=== PATIENT | female | born 1980 | race Caucasian/White ===

== ENCOUNTER → 2016-02-25 | Outpatient (CLI) | payer OTHER ==
--- NOTE | 2016-02-25 17:44 | US ---
Dear Dr. Graff, Thank you for sending your patient, Tiana Weston, to us for a follow-up US to assess interval feta l growth. As you know, the patient is a 35 y.o. G1, P0 at 27 weeks and 0 days with an EDC of 05/26/16. Her is complicated by AMA and CHTN not on medications. Tiana's brother from [facility]. A echocardiogram was normal in this . BP: 111/67 Genetic Screening: NIPT and AFP reassuring The patient denies any uterine contractions, vaginal bleeding, or loss of fluid. She reports excellen t movement. Today, she is without complaints. US FINDINGS: Number of fetuses: 1 Placental location: Anterior, no previa presentation: Cephalic Cervix: Suboptimal MVP: 5.9 cm Measurements: Biparietal diameter: 69 mm, 27 weeks 6 days Head circumference: 250 mm, 27 weeks 1 days Abdominal circumference: 248 mm, 29 weeks 0 days Femur length: 50 mm, 27 weeks 0 days Humerus length: 49 mm, 28 weeks 6 days Transcerebellar diameter: 31 mm, 26 weeks 6 days Cerebral Lateral Ventricle: 4 mm Cisterna Magna: 7 mm Heart Rate: 144 bpm Average ultrasound age: 27 weeks 6 days Estimated weight: 1162 g weight percentile: 79% Anatomy: anatomy was previously assessed. Today the following structures were visualized and appeared n ormal: lateral ventricles, posterior fossa, 4CH view and outflow tracts, stomach, kidneys, and bladde r. The spine and cardiac SVC/IVC tracts were not previously seen. Today, we were able to visualize these structures as normal. IMPRESSION: 1. Growth: The fetus measures appropriate for gestational age, measuring at a normal weight and perc entile. Visualization of the fetus today reveals no overt structural anomalies. There is evidence of normal amniotic fluid, and movement was seen during the examination. 2. Chronic Hypertension: The patient's blood pressures continue to be stable off medications. She con tinues to be asymptomatic. - Continue daily baby ASA - Growth US every 4-6 weeks - Biweekly NSTs and weekly fluid checks at 32 weeks - Delivery by 38-39 weeks or sooner for changes in maternal or status. Thank you again for sending this patient to see us today. Approximately 15 minutes were spent with th is patient today with 12 minutes of this time spent in direct face to face counseling regarding today 's US findings and our recommendations. Please contact me with any questions at . Fidelia Whitman MD Maternal- Medicine
--- NOTE | 2016-02-26 08:48 | US ---
OB Sonogram History: DARCIE May 26, 2016, 27 weeks 0 days, advanced maternal age, chronic hypertension, family his tory of congenital heart disease, maternal hypertension Comparison: January 06, 2016 Findings: There is a single viable intrauterine gestation in vertex presentation. The placenta is ant erior and not mature. There is no placenta previa. The cervix is poorly visualized. The heart i s 4 chambered and has a rate of 144 beats per minute. Fluid is identified in the stomach and fe edgard urinary bladder. The renal region looks normal. The visualized intracranial contents and spine look normal. Maximum amniotic fluid pocket = 5.9 cm. BPD = 69 mm = 27 weeks 6 days Head circumference = 250 mm = 27 weeks 1 day Abdominal circumference = 248 mm = 29 weeks 0 days Femur length = 50 mm = 27 weeks 0 days Humeral length = 49 mm = 28 weeks 6 days Cerebellar width = 31 mm = 26 weeks 6 days Cisterna magna = 6.8 mm Estimated weight = 1162 +/- 170 grams = 79% ile Ultrasound estimated DARCIE May 20, 2016 Average gestational age by ultrasound 27 weeks 6 days Impression: Size consistent with dates. Amniotic fluid remains normal. This report should be read in conjunction with the consultation by Dr. Jessica perez.
== END ==
LOC: FIMAGING 10:54
PROVIDERS: ATTEND Obstetrics & Gynecology
DX: O10.012 Pre-existing essential hypertension complicating pregnancy, second trimester (principal); O09.512 Supervision of elderly primigravida, second trimester; Z3A.27 27 weeks gestation of pregnancy

== ENCOUNTER → 2016-03-26 | Outpatient (CLI) | payer OTHER ==
--- NOTE | 2016-03-26 11:54 | US ---
Dear Dr. Graff, Thank you for sending your patient, Tiana Weston, to us for a follow-up US to assess interval feta l growth. As you know, the patient is a 35 y.o. G1, P0 at 31 weeks and 2 days with an EDC of 05/26/16. Her is complicated by AMA and elevated blood pressures in early . Tiana was initially noted to have 2 mild range blood pressures early in the 1st trimester. This houser sed concern for undiagnosed CHTN. However, throughout the remainder of the , she has been no rmotensive in clinic, at our office, and at home. She is checking her BPs at home 1-2 times per day a nd reports BPs in the 110s/60s. Prior to , she had no diagnosis of elevated blood pressures. Tiana's brother from [facility]. She has had a normal ec hocardiogram in this . Genetic Screening: NIPT reassuring Blood Pressure: 115/68 The patient denies any uterine contractions, vaginal bleeding, or loss of fluid. She reports excellen t movement. She denies headache, scotomata, or RUQ pain. Today, she is without complaints. US FINDINGS: Number of fetuses: 1 Placental location: Anterior, no previa presentation: Cephalic Cervix: Suboptimal MVP: 10 cm FRANK: 19.6 cm Measurements: Biparietal diameter: 80 mm, 32 weeks 1 days Head circumference: 297 mm, 32 weeks 6 days Abdominal circumference: 29 mm, 33 weeks 2 days Femur length: 64 mm, 33 weeks 1 days Humerus length: 57 mm, 33 weeks 0 days Transcerebellar diameter: 40 mm, 32 weeks 1 days Cerebral Lateral Ventricle: Suboptimal Cisterna Magna: 4 mm Heart Rate: 142 bpm Average ultrasound age: 32 weeks 6 days Estimated weight: 2113 g weight percentile: 91 % Anatomy: anatomy was previously assessed. Today the following structures were visualized and appeared n ormal: posterior fossa, 4CH view, stomach, kidneys, and bladder. IMPRESSION: 1. Macrosomia: Today, the fetus measures >90%ile with an EFW in the 91%ile, which meets criter ia for macrosomia. There is no evidence of polyhydramnios or [id number] disproportion. Tiana had an abnormal Glucola, but a negative 3 hour GTT with only 1 value elevated. We discussed the increased risk for cephalo-pelvic disproportion requiring delivery and of shoulder dystocia with incr eased maternal and morbidity. We also discussed healthy eating habits and exercise recommend ations as excess gestational weight gain can lead to macrosomia independent of GDM. - Consider random blood glucose measurements at clinic visits - Consider growth US at 36 weeks to better estimate EFW at 39-40 weeks 2. Elevated Blood Pressures: Given that the patient has had no further elevated blood pressures after the early first trimester, I am unsure if she warrants diagnosis of CHTN. Given that she remains nor motensive with maximum volume expansion of (28-32 weeks), I do not think that she warrants NST surveillance or regular growth US. However, if her elevated blood pressures return (>140/90) eith er at home or in clinic, I would start surveillance and obtain a follow-up growth US. Addit ionally, if her blood pressures remain normotensive, I would not recommend delivery prior to 39-40 we eks. Thank you again for sending this patient to see us today. Approximately 15 minutes were spent with th is patient today with 12 minutes of this time spent in direct face to face counseling regarding today 's US findings and our recommendations. Please contact me with any questions at . Fidelia Whitman MD Maternal- Medicine
--- NOTE | 2016-03-26 15:38 | US ---
OB Sonogram History: DARCIE 05/26/2016, 31 weeks 2 days, check growth and anatomy, maternal hypertension, advanced ma ternal age, family history of congenital heart disease Comparison: None Findings: There is a single viable uterine gestation in vertex presentation. The placenta is anterior without evidence of previa. Basilar plate calcifications are developing in the placenta. The cervix is obscured by the head. The maternal left ovary is normal. The maternal right ovary is normal. Maximum amniotic fluid pocket = 10 cm. FRANK = 19.6 cm The visualized intracranial contents and face look normal. The heart is 4 chambered and has a rate of 142 bpm. Fluid is identified in the stomach and urinary bladder. The f etal renal region normal. There is no ascites. BPD = 80 mm = 32 weeks 1 day (67%) Head circumference = 297 mm = 32 weeks 6 days (57%) Abdominal circumference = 293 mm = 33 weeks 2 days (93%) Femur length = 64 mm = 33 weeks 1 day (84%) Humeral length = 57 mm = 33 weeks 0 days Cerebellar width = 40 mm = 32 weeks 1 day Cisterna magna = 4.3 mm Estimated weight = 2113 g = 91 percentile Average gestational age by ultrasound = 32 weeks 6 days Ultrasound DARCIE May 15, 2016 Impression: macrosomia in the 93rd percentile. Normal visualized anatomy. This report should be read in conjunction with a consultation by Dr. Fidelia Whitman..
== END ==
LOC: FIMAGING 09:29
PROVIDERS: ATTEND Obstetrics & Gynecology
DX: O09.513 Supervision of elderly primigravida, third trimester (principal); O13.3 Gestational [pregnancy-induced] hypertension without significant proteinuria, third trimester; Z3A.31 31 weeks gestation of pregnancy; Z82.79 Family history of other congenital malformations, deformations and chromosomal abnormalities

== ENCOUNTER → 2016-04-30 | Outpatient (CLI) | payer OTHER | LOC: FIMAGING 09:52 | PROVIDERS: ATTEND Obstetrics & Gynecology | DX: O09.513 Supervision of elderly primigravida, third trimester (principal); Z3A.36 36 weeks gestation of pregnancy ==

== ENCOUNTER 2016-05-12 17:34 | Inpatient (IN) | payer OTHER ==
[2016-05-12] MEDS ORDERED: LR 500 ML IV PRN (17:55)
[2016-05-12] MEDS ORDERED: EPSOM SALT 454 GM TP PRN (17:55)
[2016-05-12] MEDS ORDERED: OLIVE OIL 118 ML BTL MISC PRN (17:55)
[2016-05-12] MEDS ORDERED: LR 1,000 ML IV PRN (17:55)
[2016-05-12] MEDS ORDERED: LIDOCAINE 1% 30 ML SDV SC PRN (17:55)
[2016-05-12] MEDS ORDERED: TERBUTALINE SULFATE 1 MG/ML VIAL IV PRN (17:55)
[2016-05-12] MEDS ORDERED: OXYTOCIN/RINGERS LACTATE 1,000 ML IV PRN (17:55)
[2016-05-12] MEDS ORDERED: OXYTOCIN/RINGERS LACTATE 500 ML IV SCH (18:00)
[2016-05-12 20:54] LABS: % IMMATURE GRANULYOCYTES 0.4 % (0.0-1.1); ABSOLUTE IMMATURE GRANULOCYTES 0.04 10^3/uL (0.00-0.10); ADD DIFF? NO; ADD MORPH? NO; ADD SCAN? NO; ATYPICAL LYMPHOCYTE FLAG 0 (0-99); FRAGMENT RBC FLAG 0 (0-99); HEMATOCRIT 35.8 % (38.0-47.0); LEFT SHIFT FLG 0 (0-99); LIPEMIA HEMOLYSIS FLAG 80 (0-99); MEAN CELL HEMOGLOBIN 30.3 pg (27.9-34.1); MEAN CELL HEMOGLOBIN CONCENTR. 33.5 g/dL (32.4-36.7); MEAN CELL VOLUME 90.4 fL (81.5-99.8); MEAN PLATELET VOLUME 13.4 fL (8.7-11.7); PLATELET CLUMPS FLAG 0 (0-99); PLATELET COUNT 179 10^3/uL (150-400); RED BLOOD CELL COUNT 3.96 10^6/uL (4.18-5.33); RED CELL DISTRIBUTION WIDTH 14.3 % (11.5-15.2)
[2016-05-12 21:12] LABS: ALANINE AMINOTRANSFERASE 30 IU/L (9-52); ASPARTATE AMINOTRANSFERASE 26 IU/L (14-46); BILIRUBIN,TOTAL 0.4 mg/dL (0.1-1.4); BILIRUBIN-CONJUGATED 0.3 mg/dL (0.0-0.5); BILIRUBIN-UNCONJUGATED 0.1 mg/dL (0.0-1.1); CREATININE 0.6 mg/dL (0.6-1.0); GLOMERULAR FILTRATION RATE > 60; LACTATE DEHYDROGENASE 487 IU/L (313-618); URIC ACID 5.6 mg/dL (2.5-6.8)
[2016-05-13] MEDS ORDERED: OLIVE OIL 118 ML BTL ONE (03:12)
[2016-05-13] MEDS ORDERED: LIDOCAINE 1% 30 ML SDV ONE (03:12)
[2016-05-13] MEDS ORDERED: MISOPROSTOL 200 MCG TAB ONE (03:13)
[2016-05-13] MEDS ORDERED: OXYTOCIN 10 UNIT/ML VIAL ONE (03:13)
[2016-05-13] MEDS ORDERED: AMMONIA AROMATIC 1 EACH AMP IH ONE (03:13)
[2016-05-13] MEDS ORDERED: TERBUTALINE SULFATE 1 MG/ML VIAL ONE (03:13)
[2016-05-13] MEDS: CALCIUM CARBONATE 500 MG CHEWABLE TAB PO PRN ×2 (03:44→07:33)
[2016-05-13] MEDS ORDERED: fentaNYL 2MCG/ML/BUP 0.1% RTU 100 ML BAG EP ONE (09:29)
[2016-05-13] MEDS ORDERED: BUPIVACAINE 0.25% 30 ML SDV ONE (09:29)
[2016-05-13] MEDS ORDERED: PHENYLEPHRINE HCL 100 MCG/ML SYR ONE ×3 (09:29→18:00)
[2016-05-13] MEDS ORDERED: fentaNYL 100 MCG/2 ML INJ IVP ONE (09:30)
--- NOTE | 2016-05-13 09:31 | GHP ---
[f rep st] HISTORY AND PHYSICAL DATE OF ADMISSION: 05/12/2016 CHIEF COMPLAINT: Here for induction. HISTORY OF PRESENT ILLNESS: The patient is a 36-year-old 1, para 0, female admitted at 38 weeks and 1 days estimated gestational age for induction of labor for chronic hypertension. She has no complaints. Her has been complicated by elevated blood pressures in the 1st trimester that were consistent with suspected chronic hypertension. She had initial elevated liver enzymes with a normal right upper quadrant ultrasound that then resolved. Her mild blood pressures then recurred in the 3rd trimester. Her repeat preeclampsia labs were negative. Her is also significant for an elevated 1-hour glucose tolerance test with a normal 3-hour GTT, family history of congenital cardiac defects with a normal echo, AMA with normal cell- free DNA screening, and status post a flu and Tdap shot. She currently has no complaints. No labor symptoms and no preeclampsia symptoms. A Montes bulb was placed in the clinic for induction of labor, and she was sent to labor and delivery for admission. PAST MEDICAL HISTORY: Depression, chlamydia in the distant past, PCOS, and genital warts. PAST SURGICAL HISTORY: Tonsillectomy and adenoidectomy. ALLERGIES: No known drug allergies. MEDICATIONS: vitamin, Zantac, and Atarax as needed for itching. The patient also took metformin in the beginning of her for PCOS. LABS: Blood type A positive, antibody screen negative, hematocrit 38, Pap normal, varicella and rubella immune, RPR nonreactive, urine culture negative, hepatitis B surface antigen negative, HIV negative, gonorrhea and chlamydia negative, 1-hour GTT 155 with normal 3-hour GTT, GBS negative. PHYSICAL EXAMINATION: VITAL SIGNS: Blood pressure 136/69, respiratory rate 18 , temp 36.5 degrees Celsius. heart rate tracing 140s to 150s with accelerations and no decelerations and moderate variability. Tocometer contractions every 4 minutes. GENERAL: Mild distress due to pain. ABDOMEN: Gravid and nontender. STERILE VAGINAL EXAM: Cervix 5 cm, 60% effaced, and -2 station. Montes bulb was removed at the vaginal vault prior to exam, and artificial rupture membranes was completed with no complications with an amnio hook and clear fluid was noted. ASSESSMENT: The patient is a 36-year-old G1, P0, at 38 weeks and 1 day estimated gestational age admitted for induction of labor for chronic hypertension, not requiring medications. PLAN: 1. Labor induction: Progressing well, status post Montes bulb and AROM with no complications and clear fluid noted. We will continue with Pitocin for induction of labor. 2. status reassuring with category 1 heart rate tracing with moderate variability present. 3. GBS negative. 4. Pain: Desires epidural. Will consult anesthesia. /[id number]/MODL MTDD
--- NOTE | 2016-05-13 12:56 | OBPROG ---
OBG Progress Note Assessment/Plan: Assessment: Pt is a 36 y/o at 38+1 weeks admitted for IOL for CHTN Plan: 1) Labor: Progressing well, continue with pitocin . 2) status reassuring 3) Pain: Well controlled with JESSICA 4) GBS negative 05/13/16 12:54 Subjective: Pt feeling very comfortable with her JESSICA in place. Objective: 05/12/16 20:25 05/12/16 20:25 Patient ABO/Rh A POSITIVE 05/12/16 20:25 Uric Acid 5.6 mg/dL (2.5-6.8) 05/12/16 20:25 Total Bilirubin 0.4 mg/dL (0.1-1.4) 05/12/16 20:25 Conjugated Bilirubin 0.3 mg/dL (0.0-0.5) 05/12/16 20:25 Unconjugated Bilirubin 0.1 mg/dL (0.0-1.1) 05/12/16 20:25 AST 26 IU/L (14-46) 05/12/16 20:25 ALT 30 IU/L (9-52) 05/12/16 20:25 Lactate Dehydrogenase 487 IU/L (313-618) 05/12/16 20:25 - SVE Dilation (cm): 8 Effacement (%): 80 Station: 0 Current Contraction Pattern: Regular FHR (bpm): 140 FHR Pattern Variability: Moderate FHR Category: 1 Membranes: AROM Amniotic Fluid Color: Clear ICD10 Worksheet Patient Problems: Problems Problem Status Onset Chronic hypertension in obstetric context in third trimester Acute - ICD10 Problem Qualifiers (1) Chronic hypertension in obstetric context in third trimester
--- NOTE | 2016-05-13 14:17 | OBPROG ---
OBG Progress Note Assessment/Plan: Assessment: Pt is a 36 y/o at 38+1 weeks admitted for IOL for CHTN Plan: 1) Labor: Progressing well, continue with pitocin. Only soft anterior lip present, will recheck in one hour. 2) status reassuring 3) Pain: Well controlled with JESSICA 4) GBS negative 05/13/16 14:16 Subjective: Pt comfortable, feeling more pressure. Objective: 05/12/16 20:25 05/12/16 20:25 Patient ABO/Rh A POSITIVE 05/12/16 20:25 Uric Acid 5.6 mg/dL (2.5-6.8) 05/12/16 20:25 Total Bilirubin 0.4 mg/dL (0.1-1.4) 05/12/16 20:25 Conjugated Bilirubin 0.3 mg/dL (0.0-0.5) 05/12/16 20:25 Unconjugated Bilirubin 0.1 mg/dL (0.0-1.1) 05/12/16 20:25 AST 26 IU/L (14-46) 05/12/16 20:25 ALT 30 IU/L (9-52) 05/12/16 20:25 Lactate Dehydrogenase 487 IU/L (313-618) 05/12/16 20:25 - SVE Dilation (cm): 9 (9.5 cm, anterior lip) Effacement (%): 100 Station: +1 Current Contraction Pattern: Regular FHR (bpm): 120 FHR Pattern Variability: Moderate FHR Category: 1 Amniotic Fluid Color: Clear ICD10 Worksheet Patient Problems: Problems Problem Status Onset Chronic hypertension in obstetric context in third trimester Acute - ICD10 Problem Qualifiers (1) Chronic hypertension in obstetric context in third trimester
[2016-05-13] MEDS ORDERED: fentaNYL 100 MCG/2 ML INJ ONE (17:02)
[2016-05-13] MEDS ORDERED: LIDO/EPI 2% **for epidural** 20 ML SDV ONE (17:03)
[2016-05-13] MEDS ORDERED: morphINE PF 5 MG/10 ML INJ ONE (17:26)
[2016-05-13] MEDS ORDERED: OXYTOCIN 100 UNITS/10 ML VIAL ONE (17:26)
[2016-05-13] MEDS ORDERED: HEMABATE 250 MCG/1 ML AMP IM ONE (17:40)
[2016-05-13] MEDS ORDERED: ONDANSETRON 4 MG/2 ML VIAL ONE (17:49)
[2016-05-13 17:56] LABS: PH VENOUS CORD BLOOD 7.34 (7.20-7.42)
--- NOTE | 2016-05-13 18:48 | OBPROC ---
- Delivery Pre-op Diagnoses: 1) IUP at 38+1 weeks, 2) CHTN, 3) NRFHT w/ terminal prolonged decel Post-op Diagnoses: alexandru Procedure: Primary, Emergent, Low Transverse Surgeon: Marry Graff Manufacturing Quality Technician: Albertina Gutierrez Anesthesiologist: Alexandru Ribeiro Anesthesia: Epidural Complications: None Findings: Nuchal cord IV Fluid (ml): 1,000 EBL: 800 cc Drains: Other (Specify) (jones) Cord Gases: Cord Gases Cord Blood PCO2 REJ 05/13/16 17:35 Cord Base Excess REJ 05/13/16 17:35 Cord ABG pH REJ 05/13/16 17:35 Cord VBG pH 7.34 (7.20-7.42) 05/13/16 17:35 - [place] Info A Delivery Date: 05/13/16 Delivery Time: 17:35 Sex of : Female [place] Weight (gm): 3304 g Score (1 Min): 8 Score (5 Min): 9
[2016-05-13] MEDS ORDERED: ACETAMINOPHEN 325 MG TAB PO PRN (18:50)
[2016-05-13] MEDS ORDERED: KETOROLAC 30 MG/1 ML SDV ONE (19:05)
[2016-05-13] MEDS: KETOROLAC 30 MG/1 ML SDV IVP SCH (19:11)
[2016-05-13] MEDS ORDERED: NALOXONE HCL 0.4 MG/ML INJ IVP PRN (20:06)
[2016-05-13] MEDS ORDERED: PHENYLEPHRINE HCL 100 MCG/ML SYR IVP PRN (20:06)
--- NOTE | 2016-05-13 21:27 | PREANESOB ---
Obstetric Pre-Anesthesia Info - General Info Proposed Procedure: Labor and delivery with pitocin : 1 Para: 1 WBD: 38 - Info Status: Full Term Monitors: External FHR Baseline (bpm): 150 FHR Pattern: Reassuring - Labor Status Cervical Dilation per last OB SVE: 5, 9 (9.5 cm, anterior lip) Station per last OB SVE: +1 Amniotic Fluid Color: Clear Pitocin: In Use PIH: Mild Indications for Labor Analgesia: Induction of Labor, Pain Control Labor Epidural: Proposed Anesthesia ROS: Chronic hypertension. Allergies/Adverse Reactions: Allergy/AdvReac Type Severity Reaction Status Date / Time No Known Allergies Allergy Unverified 09/24/15 19:48 Home Medications: Medication Instructions Recorded [place] 09/24/15 Metformin HCl 09/24/15 09/24/15 Visit Medications: Generic Name Dose Route Start Last Admin Trade Name Freq PRN Reason Stop Dose Admin Acetaminophen 325 - 650 mg 05/13/16 18:50 Tylenol PO 11/09/16 18:49 Q4HRS PRN Pain, Mild Hydrocodone Bitart/Acetaminophen 1 - 2 tab 05/13/16 18:50 [place] 5/325 PO 05/23/16 18:49 Q4HRS PRN Pain, Moderate Calcium Carbonate 1,000 mg 05/13/16 03:40 05/13/16 07:33 Tums PO 11/09/16 03:39 1,000 mg Q4 PRN Administration HEARTBURN Diphenhydramine HCl 25 - 50 mg 05/13/16 20:06 Benadryl Injection IVP 11/09/16 20:05 Q6HRS PRN Itching Docusate Sodium 100 mg 05/13/16 18:50 Colace PO 11/09/16 18:49 BID PRN Constipation Lactated Ringer's 1,000 mls @ 0 mls/hr 05/12/16 17:55 05/13/16 04:19 Lr IV 11/08/16 17:54 1,000 mls PRN PRN Administration SEE PROTOCOL CONDITIONS Protocol Per Protocol Lactated Ringer's 500 mls @ 500 mls/hr 05/12/16 17:55 Lr IV PRN PRN Maternal Hypotension Oxytocin/Lactated Ringer's 1,000 mls @ 150 mls/hr 05/12/16 17:55 Pitocin 20 Units/Lr (Premix) IV PRN PRN Post- bleeding Oxytocin/Lactated Ringer's 500 mls @ 0 mls/hr 05/12/16 18:00 05/13/16 04:19 Pitocin 30 Units/Lr (Premix) IV 11/08/16 17:59 500 mls CONT MONICA Administration Protocol Per Protocol Ibuprofen 600 mg 05/12/16 17:55 Motrin PO 11/08/16 17:54 Q6HRS PRN post , inflammation Ketorolac Tromethamine 30 mg 05/14/16 00:00 05/13/16 19:11 Toradol IVP 05/15/16 00:00 30 mg Q6HRS MONICA Administration Lidocaine HCl 30 ml 05/12/16 17:55 Lidocaine Hcl 1% SC 11/08/16 17:54 ONCE PRN Episiotomy Magnesium Sulfate 454 gm 05/12/16 17:55 Epsom Salt TP 11/08/16 17:54 PRN PRN perineal discomfort Naloxone HCl 0.4 mg 05/13/16 20:06 Narcan IVP 05/14/16 20:08 PRN PRN respiratory depression [place] Oil 118 ml 05/12/16 17:55 Sweet Oil MISC 11/08/16 17:54 ONCE PRN preneal massage Simethicone 80 mg 05/13/16 18:50 Mylicon PO 11/09/16 18:49 .TIDMEALS AND HS PRN Gas Terbutaline Sulfate 0.25 mg 05/12/16 17:55 Brethine IV 11/08/16 17:54 ONCE PRN Tachysystole Discontinued Medications Generic Name Dose Route Start Last Admin Trade Name Freq PRN Reason Stop Dose Admin Ammonia (Aromatic Spirit) Confirm 05/13/16 03:13 Ammonia Aromatic Administered 05/13/16 03:14 Dose 1 each IH .STK-MED ONE Bupivacaine HCl Confirm 05/13/16 09:29 Sensorcaine 0.25% Sdv Administered 05/13/16 09:30 Dose 30 ml .ROUTE .STK-MED ONE Carboprost Tromethamine Confirm 05/13/16 17:40 Hemabate Administered 05/13/16 17:41 Dose 250 mcg IM .STK-MED ONE Diphenhydramine HCl 25 mg 05/12/16 21:00 05/12/16 21:24 Benadryl Injection IVP 05/12/16 21:01 25 mg HS ONE Administration Diphenhydramine HCl Confirm 05/13/16 07:54 Benadryl Injection Administered 05/13/16 07:55 Dose 50 mg .ROUTE .STK-MED ONE Diphenhydramine HCl Confirm 05/13/16 08:02 Benadryl Injection Administered 05/13/16 08:03 Dose 50 mg .ROUTE .STK-MED ONE Diphenhydramine HCl 25 mg 05/13/16 07:44 05/13/16 10:53 Benadryl Injection IVP 05/13/16 07:45 25 mg ONCE ONE Administration Ephedrine Sulfate Confirm 05/13/16 03:13 Ephedrine Sulfate Administered 05/13/16 03:14 Dose 50 mg .ROUTE .STK-MED ONE Fentanyl 100 mcg 05/13/16 09:30 05/13/16 09:34 Sublimaze IVP 05/13/16 09:31 100 mcg ONCE ONE Administration Fentanyl Confirm 05/13/16 17:02 Sublimaze Administered 05/13/16 17:03 Dose 100 mcg .ROUTE .STK-MED ONE Fentanyl/Bupivacaine HCl Confirm 05/13/16 09:29 Fentanyl/Bupivacaine/Ns 2 Mcg/Ml 0.1% (Premix Administered 05/13/16 09:30 Dose 100 ml EP .STK-MED ONE Ketorolac Tromethamine Confirm 05/13/16 19:05 Toradol Administered 05/13/16 19:06 Dose 30 mg .ROUTE .STK-MED ONE Lidocaine HCl Confirm 05/13/16 03:12 Lidocaine Hcl 1% Administered 05/13/16 03:13 Dose 30 ml .ROUTE .STK-MED ONE Lidocaine/Epinephrine Confirm 05/13/16 17:03 Xylocaine 2%-Epi 1:200,000 Administered 05/13/16 17:04 Dose 20 ml .ROUTE .STK-MED ONE Misoprostol Confirm 05/13/16 03:13 Cytotec Administered 05/13/16 03:14 Dose 1,000 mcg .ROUTE .STK-MED ONE Morphine Sulfate Confirm 05/13/16 17:26 Morphine Pf 5 Mg/10 Ml Administered 05/13/16 17:27 Dose 5 mg .ROUTE .STK-MED ONE [place] Oil Confirm 05/13/16 03:12 Sweet Oil Administered 05/13/16 03:13 Dose 118 ml .ROUTE .STK-MED ONE Ondansetron HCl Confirm 05/13/16 17:49 Zofran Administered 05/13/16 17:50 Dose 8 mg .ROUTE .STK-MED ONE Oxytocin Confirm 05/13/16 03:13 Pitocin Administered 05/13/16 03:14 Dose 40 unit .ROUTE .STK-MED ONE Oxytocin Confirm 05/13/16 17:26 Pitocin Administered 05/13/16 17:27 Dose 100 units .ROUTE .STK-MED ONE Phenylephrine HCl Confirm 05/13/16 09:29 [place]-Synephrine Administered 05/13/16 09:30 Dose 1,000 mcg .ROUTE .STK-MED ONE Phenylephrine HCl Confirm 05/13/16 17:26 [place]-Synephrine Administered 05/13/16 17:27 Dose 1,000 mcg .ROUTE .STK-MED ONE Phenylephrine HCl Confirm 05/13/16 18:00 [place]-Synephrine Administered 05/13/16 18:01 Dose 1,000 mcg .ROUTE .STK-MED ONE Phenylephrine HCl 100 mcg 05/13/16 20:06 [place]-Synephrine IVP 05/13/16 21:06 Q1M PRN Hypotension Terbutaline Sulfate Confirm 05/13/16 03:13 Brethine Administered 05/13/16 03:14 Dose 1 mg .ROUTE .STK-MED ONE - Anesthesia History Response to Local Anesthetics: Normal - Social History Substance Use/Abuse: Denies - Focused Exam Latest Vital Signs (Nursing): Temp Pulse Resp BP Pulse Ox 36.9 C 108 H 18 109/41 L 99 05/13/16 19:04 05/13/16 19:04 05/13/16 19:04 05/13/16 19:04 05/13/16 19:04 Blood Pressure: 109/60 Heart Rate: 67 Respiratory Rate: 20 Height/Weight (Nursing): Height 157.48 cm Weight 98.883 kg Physical Exam: Within normal limits. ASA Status: II Labs: 05/12/16 20:25 05/12/16 20:25 Patient ABO/Rh A POSITIVE 05/12/16 20:25 Uric Acid 5.6 mg/dL (2.5-6.8) 05/12/16 20:25 Total Bilirubin 0.4 mg/dL (0.1-1.4) 05/12/16 20:25 Conjugated Bilirubin 0.3 mg/dL (0.0-0.5) 05/12/16 20:25 Unconjugated Bilirubin 0.1 mg/dL (0.0-1.1) 05/12/16 20:25 AST 26 IU/L (14-46) 05/12/16 20:25 ALT 30 IU/L (9-52) 05/12/16 20:25 Lactate Dehydrogenase 487 IU/L (313-618) 05/12/16 20:25 - Plan Anesthetic Plan: CSE Consent Signed and on Chart: Yes Patient/Guardian Understands and Agrees to Plan: Yes
--- NOTE | 2016-05-13 21:29 | POSTANESTH ---
Post Anesthetic Evaluation Cardiovascular Status: Normal, Stable, Similar to Pre-Op Cond Respiratory Status: Normal, Stable, Similar to Pre-op Cond. Level of Consciousness/Mental Status: Can Participate in Eval, Alert and Oriented Pain Control: Adequate, Prn Tx Ordered Nausea/Vomiting Control: Adequate, Prn Tx Ordered Complications Possibly Related to Anesthesia: None Noted (Tolerated CSE well, stable, comfortable.)
--- NOTE | 2016-05-13 21:30 | POSTANESTH ---
Post Anesthetic Evaluation Cardiovascular Status: Normal, Stable, Similar to Pre-Op Cond Respiratory Status: Normal, Stable, Similar to Pre-op Cond. Level of Consciousness/Mental Status: Can Participate in Eval, Alert and Oriented Pain Control: Adequate, Prn Tx Ordered Nausea/Vomiting Control: Adequate, Prn Tx Ordered Complications Possibly Related to Anesthesia: None Noted (Epidural dosed for C Section, BP treated, comfortable for surgery, to PACU, no pain or nausea.)
--- NOTE | 2016-05-14 02:08 | GOP ---
[f rep st] OPERATIVE REPORT DATE OF OPERATION: 05/13/2016 SURGEON: Marry Graff MD BUFFING LINE SET UP WORKER: FABIAN Naqvi. ANESTHESIA: Epidural. ANESTHESIOLOGIST: Alexandru Ribeiro MD. PREOPERATIVE DIAGNOSIS: 1. Intrauterine at 38 weeks gestation. 2. Induction for chronic hypertension. 3. Non-reassuring heart rate tracing with prolonged deceleration. POSTOPERATIVE DIAGNOSIS: 1. Intrauterine at 38 weeks gestation. 2. Induction for chronic hypertension. 3. Non-reassuring heart rate tracing with prolonged deceleration. PROCEDURE PERFORMED: Primary low transverse section. FINDINGS: 1. Delivered a female at 5:35 p.m., weighing 3304 g with Apgars of 8 and 9, in a vertex presentation, with a nuchal cord noted that was also looped up near the face anteriorly. 2. Normal uterus, fallopian tubes, and ovaries. 3. Mild uterine atony, treated with Hemabate and Pitocin. SPECIMENS: None. ESTIMATED BLOOD LOSS: 800 cc. INDICATIONS: The patient is a 36-year-old, G1, P0, female at 38 weeks gestation , admitted for induction of labor for chronic hypertension. She had a Montes bulb placed and quickly progressed to 5 cm. She then progressed with Pitocin to anterior lip dilation. There were approximately 2 or 3 periods where she had periodic variable decelerations which did resolve with position changes, O2 per nasal cannula, and stopping the Pitocin; however, the patient suddenly had a severe, prolonged, deceleration from its baseline around the 150s, down to the 90s after placement of an FSE. The patient was placed in different positions, ultimately on hands and knees, and other resuscitation maneuvers were initiated with Pitocin stopped, IV fluids administered, and O2 per nasal cannula. The patient was also given a dose of terbutaline and the heart rate tracing showed that the heart rate remained in the 90s and, in fact, it lost variability, despite all these maneuvers. After approximately 4-5 minutes of prolonged deceleration in the 90s, the patient was advised that I strongly recommended proceeding with an emergent section. She was counseled regarding the need for emergent delivery, and all the risks and benefits were verbally reviewed as preparations were made to take her to the operating room. Upon arrival into the operating room, the heart rate was found to be in the 120s. The decision was made to proceed with a delivery due to the prolonged deceleration that ultimately lasted for approximately 6-7 minutes, with the heart beat in the 90s. I discussed the recommendation to proceed with a , and she and her agreed to proceed. Now that the heart rate had recovered, preparations were then made in a routine fashion for delivery. DESCRIPTION OF PROCEDURE: The patient was taken to the operating room, where the heart rate tracing was found to be in the 120s. Anesthesia then prepared her epidural, and epidural anesthesia was found be adequate. She was prepared and draped in the normal sterile fashion in the dorsal supine position with a left tilt. Ancef 2 g IV was administered. SCDs were placed. After confirmation of adequate anesthesia, a low transverse skin incision was made and carried down to the level of the fascia using the scalpel and Bovie for hemostasis. The fascia was incised in the midline, extended laterally bilaterally with the Singh scissors. The fascia was dissected off the rectus muscles superiorly and inferiorly with the Bovie. The peritoneal cavity was entered bluntly and the incision was extended superiorly and inferiorly with the Bovie as needed. A bladder blade was placed. An incision was made in the vesicouterine peritoneum and extended laterally bilaterally. The bladder was then dissected away from the lower uterine segment digitally. A low transverse uterine incision was made and extended digitally. Immediately , the umbilical cord was visualized, wrapped around the baby's neck, and extending and delivering through the incision. The baby's head was then delivered atraumatically in vertex presentation and the nuchal cord was reduced. The baby was delivered and noted to have a spontaneous cry. The cord was doubly clamped and cut, and the baby was handed to the waiting nurse practitioner. A segment of cord was obtained for cord gases, and cord blood was then obtained. The placenta was delivered with uterine massage and noted to be intact. The uterus was exteriorized on the maternal abdomen and wiped with a dry lap sponge to remove all residual membranes. The uterine incision was then closed with a running, locked stitch of 0 Monocryl. A second layer was placed for imbrication purposes using the same suture. Additional ayhabi-rh-vlnty stitch was placed in the midline to obtain hemostasis. During the closure of the incision, the uterus was noted to have some mild atony and a dose of Hemabate IM was administered while Pitocin was being administered in the remaining IV fluids. The posterior cul-de-sac was then irrigated with copious amounts of normal saline and the uterus was then placed back in the maternal abdomen. The gutters were wiped with moist lap sponges bilaterally and the uterine incision was examined closely. Hemostasis was assured. The rectus muscle surfaces and fascial surfaces were then examined closely and hemostasis was assured. The rectus muscles were then reapproximated with a cvljyz-gr-qcelk stitch of 0 chromic. The fascia was then closed with a running , nonlocked stitch of #1 PDS. The subcutaneous tissue was reapproximated with interrupted stitches of 2-0 Vicryl. The skin was closed with a subcuticular stitch of 4-0 Monocryl. Steri-Strips and a bandage dressing were placed. A vaginal Crede exam was performed with blood clots cleared from the vaginal vault. The uterus was noted to be firm. The incision was dressed, and all sponge, lap, and needle counts correct x2. BUFFING LINE SET UP WORKER: Albertina Morrison RN. COMPLICATIONS: Mild uterine atony. DRAINS: Montes to gravity. IV FLUIDS: 1000 cc. URINE OUTPUT: 400 cc. /[id number]/MODL MTDD
[2016-05-14] MEDS: KETOROLAC 30 MG/1 ML SDV IVP SCH ×4 (02:18→19:53)
[2016-05-14 04:46] LABS: % IMMATURE GRANULYOCYTES 0.3 % (0.0-1.1); ABSOLUTE IMMATURE GRANULOCYTES 0.05 10^3/uL (0.00-0.10); ADD DIFF? NO; ADD MORPH? NO; ADD SCAN? NO; ATYPICAL LYMPHOCYTE FLAG 0 (0-99); FRAGMENT RBC FLAG 0 (0-99); HEMATOCRIT 31.2 % (38.0-47.0); HEMOGLOBIN 10.4 g/dL (12.6-16.3); LEFT SHIFT FLG 20 (0-99); LIPEMIA HEMOLYSIS FLAG 80 (0-99); MEAN CELL HEMOGLOBIN 30.7 pg (27.9-34.1); MEAN CELL HEMOGLOBIN CONCENTR. 33.3 g/dL (32.4-36.7); MEAN PLATELET VOLUME 12.8 fL (8.7-11.7); PLATELET CLUMPS FLAG 0 (0-99); PLATELET COUNT 147 10^3/uL (150-400); RED BLOOD CELL COUNT 3.39 10^6/uL (4.18-5.33); RED CELL DISTRIBUTION WIDTH 14.6 % (11.5-15.2)
[2016-05-14] MEDS: DOCUSATE SODIUM 100 MG CAP PO PRN ×2 (08:41→20:40)
--- NOTE | 2016-05-14 12:02 | SOAPPROG ---
SOAP Progress Note Assessment/Plan: Assessment: POD#1 s/p pLTCS for distress Recovering appropriately Vitals and H/H overall appropriate, but has had intermittent tachycardia, will continue to monitor Rh pos, rub immune s/p tdap and flu vaccines CHTN: BPs under good control Plan: Routine post-op care D/C Montes this afternoon Ambulate Transition to po meds If tachycardia persists despite consider repeat CBC 05/14/16 12:00 05/14/16 12:01 05/14/16 12:02 Subjective: Tired. So happy with baby. Pain is controlled. Hasn't walked or gotten out of bed. No heavy bleeding. No chest pain or shortness of breath. Has started . Objective: Vital Signs Temp Pulse Resp BP Pulse Ox 36.9 C 112 H 22 H 117/74 96 05/14/16 09:23 05/14/16 11:24 05/14/16 11:24 05/14/16 11:24 05/14/16 11:24 Laboratory Results 05/14/16 04:30 05/12/16 20:25 05/13/16 05/14/16 05/15/16 05:59 05:59 05:59 Intake Total 2950 Output Total 2200 Balance 750 Gen: NAD, alert, awake Breasts: soft Resp: unlabored CV: reg rate Abd: soft, appropriately tender, appropriately distended Bandage: c/d/i Ext; SCDs in place, no edema ICD10 Worksheet Patient Problems: Problems Problem Status Onset Chronic hypertension in obstetric context in third trimester Acute
[2016-05-14] MEDS: HYDROCODONE/APAP 5/325 TAB PO PRN ×3 (13:21→22:24)
[2016-05-14] MEDS: IBUPROFEN 600 MG TAB PO PRN ×2 (14:23→20:41)
[2016-05-14] MEDS: SIMETHICONE 80 MG TAB CHEW PO PRN (20:49)
[2016-05-15] MEDS: IBUPROFEN 600 MG TAB PO PRN ×4 (03:13→19:54)
[2016-05-15] MEDS: HYDROCODONE/APAP 5/325 TAB PO PRN ×4 (03:13→21:12)
[2016-05-15] MEDS: DOCUSATE SODIUM 100 MG CAP PO PRN (07:54)
[2016-05-15] MEDS: SIMETHICONE 80 MG TAB CHEW PO PRN ×3 (09:18→20:03)
[2016-05-15] MEDS ORDERED: LACTULOSE 20 GM/30 ML UDCUP PO PRN (16:53)
[2016-05-15] MEDS ORDERED: MAGNESIUM HYDROXIDE 30 ML UDCUP PO PRN (16:53)
[2016-05-15] MEDS ORDERED: POLYETHYLENE GLYCOL 3350 17 GM PKT PO PRN (16:53)
[2016-05-15] MEDS ORDERED: BISACODYL 10 MG SUPP PR PRN (16:53)
--- NOTE | 2016-05-15 18:38 | OBPROG ---
OBG Progress Note Assessment/Plan: Assessment: Pt is a 36 y/o POD#2 s/p primary LTCS for NRFHT - doing well Plan: 1) Continue routine postop care, pain well controlled, encouraged ambulation 2) A+/RI 3) Breast feeding progressing 05/15/16 18:35 Subjective: Pt doing well, ambulating, tolerating regular diet, voiding spontaneously, breast feeding progressing, no complaints. Objective: 05/14/16 04:30 05/12/16 20:25 Patient ABO/Rh A POSITIVE 05/12/16 20:25 Uric Acid 5.6 mg/dL (2.5-6.8) 05/12/16 20:25 Total Bilirubin 0.4 mg/dL (0.1-1.4) 05/12/16 20:25 Conjugated Bilirubin 0.3 mg/dL (0.0-0.5) 05/12/16 20:25 Unconjugated Bilirubin 0.1 mg/dL (0.0-1.1) 05/12/16 20:25 AST 26 IU/L (14-46) 05/12/16 20:25 ALT 30 IU/L (9-52) 05/12/16 20:25 Lactate Dehydrogenase 487 IU/L (313-618) 05/12/16 20:25 Temp Pulse Resp BP Pulse Ox 36.3 C 96 18 116/72 99 05/15/16 07:51 05/15/16 07:51 05/15/16 07:51 05/15/16 07:51 05/15/16 07:51 Uterine Position/Fundal Height: Umbilicus -1 Uterine Tone: Firm - Physical Exam General Appearance: WD/WN, alert, no apparent distress Respiratory: lungs clear Cardiac/Chest: regular rate, rhythm Abdomen: normal bowel sounds, soft, incision (c/d/i, steri strips intact) ICD10 Worksheet Patient Problems: Problems Problem Status Onset Chronic hypertension in obstetric context in third trimester Acute - ICD10 Problem Qualifiers (1) Chronic hypertension in obstetric context in third trimester
[2016-05-15] MEDS: SENNOSIDES/DOCUSATE SODIUM TAB PO SCH (19:53)
[2016-05-15 20:28] VITALS: RESP 16
[2016-05-16] MEDS: IBUPROFEN 600 MG TAB PO PRN ×3 (01:40→22:24)
[2016-05-16] MEDS: HYDROCODONE/APAP 5/325 TAB PO PRN ×6 (01:41→22:23)
[2016-05-16] MEDS: SIMETHICONE 80 MG TAB CHEW PO PRN (08:23)
[2016-05-16] MEDS: DOCUSATE SODIUM 100 MG CAP PO PRN (08:23)
[2016-05-16] MEDS: SENNOSIDES/DOCUSATE SODIUM TAB PO SCH ×2 (08:23→22:44)
--- NOTE | 2016-05-16 08:24 | OBPROG ---
OBG Progress Note Assessment/Plan: Assessment: Pt is a 36 y/o POD#3 s/p primary LTCS for NRFHT - doing well Plan: 1) Continue routine postop care, bowel protocol altered to scheduled doses of fiber and mirilax. 2) A+/RI 3) Breast feeding progressing 4) Inpatient care 05/16/16 08:23 Subjective: Pt is ambulating, tolerating regular diet, voiding spontaneously, pain from gas. Pt passing very little flatus, no BM. Objective: 05/14/16 04:30 05/12/16 20:25 Patient ABO/Rh A POSITIVE 05/12/16 20:25 Uric Acid 5.6 mg/dL (2.5-6.8) 05/12/16 20:25 Total Bilirubin 0.4 mg/dL (0.1-1.4) 05/12/16 20:25 Conjugated Bilirubin 0.3 mg/dL (0.0-0.5) 05/12/16 20:25 Unconjugated Bilirubin 0.1 mg/dL (0.0-1.1) 05/12/16 20:25 AST 26 IU/L (14-46) 05/12/16 20:25 ALT 30 IU/L (9-52) 05/12/16 20:25 Lactate Dehydrogenase 487 IU/L (313-618) 05/12/16 20:25 Temp Pulse Resp BP Pulse Ox 36.5 C 98 16 126/77 H 97 05/15/16 20:26 05/15/16 20:26 05/15/16 20:26 05/15/16 20:26 05/15/16 20:26 Uterine Position/Fundal Height: At Umbilicus Uterine Tone: Firm - Physical Exam General Appearance: WD/WN, alert, no apparent distress Respiratory: lungs clear Cardiac/Chest: regular rate, rhythm Abdomen: normal bowel sounds, distended, incision (c/d/i) ICD10 Worksheet Patient Problems: Problems Problem Status Onset Chronic hypertension in obstetric context in third trimester Acute - ICD10 Problem Qualifiers (1) Chronic hypertension in obstetric context in third trimester
[2016-05-16] MEDS: MAGNESIUM HYDROXIDE 30 ML UDCUP PO SCH (08:51)
[2016-05-16] MEDS: LACTULOSE 20 GM/30 ML UDCUP PO SCH ×3 (08:51→22:33)
[2016-05-16 21:42] VITALS: O2SAT 96
[2016-05-17] MEDS: HYDROCODONE/APAP 5/325 TAB PO PRN ×3 (02:31→12:01)
[2016-05-17] MEDS: IBUPROFEN 600 MG TAB PO PRN ×2 (05:59→12:00)
[2016-05-17 10:50] VITALS: BP 115/77; PULSE 75; TEMP 97.1
[2016-05-17] MEDS: SENNOSIDES/DOCUSATE SODIUM TAB PO SCH (11:28)
[2016-05-17] MEDS: LACTULOSE 20 GM/30 ML UDCUP PO SCH (11:30)
[2016-05-17] MEDS: MAGNESIUM HYDROXIDE 30 ML UDCUP PO SCH (11:30)
--- NOTE | 2016-05-17 12:36 | OBPROG ---
OBG Progress Note Assessment/Plan: Assessment: Pt is a 36 y/o POD#4 s/p primary LTCS for NRFHT - doing well, ready for discharge home Plan: 1) Discharge home 2) A+/RI 3) Breast feeding progressing 4) RX for motrin and norco given 5) F/U in 2 weeks or sooner prn. Pain/bleeding/fever precautions 05/17/16 12:36 Subjective: Pt doing well, no complaints. Ambulating, voiding, passing flatus and BM, tolerating regular diet, lochia diminishing, and breast feeding progressing. Pt had one hour of diarrhea yesterday, but no BM yet today. Pain well controlled w/ oral meds. Objective: 05/14/16 04:30 05/12/16 20:25 Patient ABO/Rh A POSITIVE 05/12/16 20:25 Uric Acid 5.6 mg/dL (2.5-6.8) 05/12/16 20:25 Total Bilirubin 0.4 mg/dL (0.1-1.4) 05/12/16 20:25 Conjugated Bilirubin 0.3 mg/dL (0.0-0.5) 05/12/16 20:25 Unconjugated Bilirubin 0.1 mg/dL (0.0-1.1) 05/12/16 20:25 AST 26 IU/L (14-46) 05/12/16 20:25 ALT 30 IU/L (9-52) 05/12/16 20:25 Lactate Dehydrogenase 487 IU/L (313-618) 05/12/16 20:25 Temp Pulse Resp BP Pulse Ox 36.2 C 75 16 115/77 96 05/17/16 09:00 05/17/16 09:00 05/17/16 09:00 05/17/16 09:00 05/16/16 21:00 Uterine Position/Fundal Height: At Umbilicus Uterine Tone: Firm - Physical Exam General Appearance: WD/WN, alert, no apparent distress Respiratory: lungs clear Cardiac/Chest: regular rate, rhythm Abdomen: normal bowel sounds, non-tender, soft, flatus, incision (incision c/d/i ) ICD10 Worksheet Patient Problems: Problems Problem Status Onset Chronic hypertension in obstetric context in third trimester Acute - ICD10 Problem Qualifiers (1) Chronic hypertension in obstetric context in third trimester
== END 2016-05-17 14:30 | disposition home or self-care (01) | DRG 765 ==
LOC: FLD 17:34 → FOB 05-13 20:00
PROVIDERS: ADMIT Obstetrics & Gynecology; ATTEND Obstetrics & Gynecology
PROC: 10907ZC Drainage of Amniotic Fluid, Therapeutic from Products of Conception, Via Natural or Artificial Opening (ICD-10-PCS; principal; 2016-05-13)
PROC: 10D00Z1 Extraction of Products of Conception, Low, Open Approach (ICD-10-PCS; principal; 2016-05-13)
PROC: 3E033VJ Introduction of Other Hormone into Peripheral Vein, Percutaneous Approach (ICD-10-PCS; principal; 2016-05-13)
DX: O76 Abnormality in fetal heart rate and rhythm complicating labor and delivery (principal); O10.913 Unspecified pre-existing hypertension complicating pregnancy, third trimester; O09.513 Supervision of elderly primigravida, third trimester; Z3A.38 38 weeks gestation of pregnancy; Z37.0 Single live birth
CPT/HCPCS: J1200; J1885; J2274; J2370; J2405; J2590; J3010; J3105

== ENCOUNTER → 2018-05-10 | Outpatient (CLI) | payer BC | LOC: FIMAGING 15:45 | PROVIDERS: ATTEND Obstetrics & Gynecology | DX: Z12.31 Encounter for screening mammogram for malignant neoplasm of breast (principal) ==